=== PATIENT | female | born 1945 | race Hispanic/Latino ===

== ENCOUNTER 2021-08-17 14:18 | Emergency (ER) | payer MEDICARE ==
[~2021-08-17 14:18] MED LIST: ATOR20TA65 PO; CLOP75TA14 PO; GLIP1TAB5 PO; LEVO50CA4 PO; LISI10TA24 PO
[2021-08-17] MEDS ORDERED: KETOROLAC 15MG/ML VIAL (15MG/ML) IV ONE (16:30)
[2021-08-17] MEDS ORDERED: CYCLOBENZAPRINE HCL 10 MG TABLET PO ONE (16:30)
[2021-08-17 16:31] LABS: BASOPHILS % (AUTO) 0.3 % (0.0-5.0); HEMATOCRIT 31.7 % (36-48); LYMPHOCYTES % (AUTO) 7.1 % (21.0-51.0); MEAN CORPUSCULAR HEMOGLOBIN 30.2 pg (27.0-33.0); MEAN CORPUSCULAR VOLUME 86.1 fL (79-99); NEUTROPHILS % (AUTO) 81.1 % (40.0-77.0); PLATELET COUNT (AUTO) 117 K/uL (130-400); RED BLOOD CELL COUNT(AUTO) 3.68 MIL/uL (4.00-5.50); RED CELL DISTRIBUTION WIDTH 12.5 % (11.0-15.5); WHITE BLOOD COUNT (AUTO) 7.9 K/uL (4.8-10.8)
[2021-08-17 16:41] LABS: CREATININE 0.9 mg/dL (0.5-1.5); POTASSIUM 3.9 mmol/L (3.5-5.1)
[2021-08-17 16:46] LABS: ALBUMIN 3.3 g/dL (3.5-5.0); CRP QUANTITATIVE 75.9 mg/L (0.00-9.0); TOTAL PROTEIN, SERUM 7.9 g/dL (6.0-8.3)
[2021-08-17] MEDS ORDERED: 0.9%NACL 1000ML 1,000 ML IV SCH (17:00)
[2021-08-17] MEDS ORDERED: ACET-2247 PO (18:14)
[2021-08-17] MEDS ORDERED: GABA300C PO (18:14)
[2021-08-17 18:43] VITALS: BP 162/63
== END 2021-08-17 20:05 | disposition home or self-care (01) ==
LOC: EDH 14:18
DX: E87.1 Hypo-osmolality and hyponatremia (principal); M25.50 Pain in unspecified joint; E11.9 Type 2 diabetes mellitus without complications; I10 Essential (primary) hypertension; E78.5 Hyperlipidemia, unspecified; E86.0 Dehydration; E05.90 Thyrotoxicosis, unspecified without thyrotoxic crisis or storm; Z79.899 Other long term (current) drug therapy; Z79.84 Long term (current) use of oral hypoglycemic drugs
CPT/HCPCS: 84484; 80053; 85025; 86140; 36415; 96374; 99283; 96361; J7030; J1885

== ENCOUNTER → 2022-06-25 | Outpatient (CLI) | payer MEDICARE ==
[~2022-06-25] MED LIST changes: +ACET-2247 PO; +CLOP-31 PO; -CLOP75TA14 PO; +GABA300C PO
== END | disposition home or self-care (01) ==
LOC: SHCH 11:18
PROVIDERS: ATTEND Student in an Organized Health Care Education/Training Program
DX: R09.89 Other specified symptoms and signs involving the circulatory and respiratory systems (principal)
CPT/HCPCS: 93880

== ENCOUNTER 2023-04-30 10:06 | Emergency (ER) | payer MEDICARE ==
[~2023-04-30] VITALS: Ht 157.5 cm; Wt 60.8 kg
[2023-04-30 12:38] LABS: BASOPHILS # (AUTO) 0.05 K/uL (0.00-0.20); EOSINOPHILS # (AUTO) 0.17 K/uL (0.00-0.70); EOSINOPHILS % (AUTO) 3.3 % (0.0-8.0); IMMATURE GRANULOCYTE ABSOLUTE 0.02 K/uL (0-1); LYMPHOCYTES # (AUTO) 1.2 K/uL (1.0-4.8); LYMPHOCYTES % (AUTO) 22.9 % (21.0-51.0); MEAN CORPUSCULAR HEMOGLOBIN 31.1 pg (27.0-33.0); MEAN CORPUSCULAR HGB CONC 34.3 g/dL (32.0-36.0); MEAN CORPUSCULAR VOLUME 90.7 fL (79-99); MONOCYTES # (AUTO) 0.5 K/uL (0.1-1.0); MONOCYTES % (AUTO) 9.8 % (3.0-13.0); NEUTROPHILS # (AUTO) 3.3 K/uL (1.8-7.7); NEUTROPHILS % (AUTO) 62.6 % (40.0-77.0); PLATELET COUNT (AUTO) 141 K/uL (130-400); RED BLOOD CELL COUNT(AUTO) 4.08 MIL/uL (4.00-5.50); RED CELL DISTRIBUTION WIDTH 12.5 % (11.0-15.5); WHITE BLOOD COUNT (AUTO) 5.2 K/uL (4.8-10.8)
[2023-04-30 12:48] LABS: CREATININE 0.9 mg/dL (0.5-1.5); POTASSIUM 4.5 mmol/L (3.5-5.1)
[2023-04-30 12:52] LABS: ALBUMIN 4.1 g/dL (3.5-5.0); BILIRUBIN,TOTAL 0.5 mg/dL (0.2-1.0); TOTAL PROTEIN, SERUM 8.7 g/dL (6.0-8.3)
[2023-04-30 15:40] LABS: APPEARANCE,URINE CLEAR (CLEAR); BILIRUBIN,URINE NEGATIVE (NEGATIVE); COLOR,URINE LIGHT-YELLOW (YELLOW); GLUCOSE, URINE (UA) NEGATIVE (NEGATIVE); KETONES,URINE NEGATIVE (NEGATIVE); LEUKOCYTE ESTERASE ,URINE NEGATIVE Leu/uL (NEGATIVE); NITRATE,URINE NEGATIVE (NEGATIVE); OCCULT BLOOD,URINE NEGATIVE (NEGATIVE); PH,URINE 6.5 (5.0-8.0); PROTEIN,URINE 20 mg/dL (NEGATIVE); UROBILINOGEN,URINE 0.2 mg/dL (0.2-1.0)
[2023-04-30 15:45] LABS: ADD UA MICROSCOPIC YES
[2023-04-30 15:46] LABS: MUCUS,URINE RARE LPF (None Seen); SQUAMOUS EPITHELIAL CELL,UR RARE /HPF (0-2); WBC,URINE 0-1 /HPF (0-1)
[2023-04-30] MEDS ORDERED: ACET-2893 PO (15:56)
[2023-04-30 16:31] VITALS: BP 18/89; PULSE 64; RESP 16; O2SAT 97
== END 2023-04-30 16:36 | disposition home or self-care (01) ==
LOC: EDH 10:06
DX: M46.94 Unspecified inflammatory spondylopathy, thoracic region (principal); M13.88 Other specified arthritis, other site; M54.50 Low back pain, unspecified; I10 Essential (primary) hypertension; E11.9 Type 2 diabetes mellitus without complications; E78.00 Pure hypercholesterolemia, unspecified; K43.9 Ventral hernia without obstruction or gangrene; Z79.899 Other long term (current) drug therapy; Z98.890 Other specified postprocedural states
CPT/HCPCS: 36415; 71045; 74176; 80053; 81001; 83615; 85025

== ENCOUNTER → 2023-12-13 | Outpatient (CLI) | payer MEDICARE ==
[~2023-12-13] MED LIST changes: +ACET-2893 PO
== END | disposition home or self-care (01) ==
LOC: SHCH 07:32
PROVIDERS: ATTEND Student in an Organized Health Care Education/Training Program
DX: I71.40 Abdominal aortic aneurysm, without rupture, unspecified (principal)
CPT/HCPCS: 93978

== ENCOUNTER → 2024-01-21 | Outpatient (CLI) | payer MEDICARE | END | disposition home or self-care (01) | LOC: SHCH 12:59 | PROVIDERS: ATTEND Student in an Organized Health Care Education/Training Program | DX: I49.3 Ventricular premature depolarization (principal) | CPT/HCPCS: 93306 ==